=== PATIENT | female | born 1985 | race Caucasian/White ===

== ENCOUNTER 2020-10-13 04:11 | Inpatient (IN) | payer MEDICAID, SELFPAY ==
[2020-10-13] VITALS (20 sets, daily range): BP systolic 98–138; BP diastolic 46–71; PULSE 47–73; RESP 16; TEMP 35.8–36.4; BMI 24.1
[2020-10-13 04:41] LABS: Basophils # 0.1 10^3/uL (0.0-0.1); Basophils % 0.5 %; Eosinophils # 0.2 10^3/uL (0.0-0.8); Eosinophils % 2.1 %; Hematocrit 38.7 % (37.0-47.0); Hemoglobin 12.9 g/dL (11.5-15.3); Lymphocytes # 3.4 10^3/uL (0.8-4.8); Lymphocytes % 31.4 %; Mean Corpuscular HGB Conc 33.3 g/dL (30.0-36.0); Mean Corpuscular Hemoglobin 31.5 pg (28.0-34.0); Mean Corpuscular Volume 94.6 fL (81-99); Monocytes # 0.6 10^3/uL (0.2-0.9); Monocytes % 5.6 %; Neutrophils # 6.42 10^3/uL (1.8-7.7); Neutrophils % 59.7 %; Nucleated Red Blood Cells % 0 %; Platelet Count 208 10^3/cmm (130-400); Red Blood Count 4.09 10^6/uL (4.1-5.3); Red Cell Distribution Width 13.5 % (12.1-15.1); White Blood Count 10.8 10^3/uL (4.0-10.0)
[2020-10-13] MEDS: dextrose 5%-lactated ringers 1,000 ML 125 ML IV (05:01)
[2020-10-13] MEDS: oxytocin 30 UNIT/500 ML BAG 600 UNIT IV (05:01)
[2020-10-13] MEDS: lidocaine 2% INJ 20 mL INJECTION (05:02)
--- NOTE | 2020-10-13 05:29 | P.PCNOB_ITS ---
Delivery Note: Date of delivery: October 13, 2020 Delivery: This is a 35-year-old G4, P3 at 39 weeks 2 days gestation who presented to labor and delivery in active labor with advanced dilation. She was 9 cm dilated at presentation. The patient declined pain management. She underwent artificial rupture of membranes with clear fluid noted. Rupture of membranes was less than 10 minutes prior to delivery. She had a normal spontaneous vaginal delivery of a viable female weight 3520, 7#12 oz Apgars 9/9 over an intact perineum. The was suctioned at delivery and placed on the mother's chest. The cord was clamped and cut. The placenta was delivered grossly intact and normal to inspection. There was some trailing membranes that were removed using ringed forceps. There was a first-degree perineal laceration that was sutured using 3-0 chromic. Estimated blood loss 250 mL. Mother and doing well after delivery. A&P Assessment and plan (1) Normal spontaneous vaginal delivery: Routine care Status: Acute Coding Level of Care Code Acute Counseling Services Director for Silvio Ortiz Diagnoses Normal spontaneous vaginal delivery O80
[2020-10-13 17:15] LABS: Hematocrit 35.6 % (37.0-47.0); Hemoglobin 11.9 g/dL (11.5-15.3); Mean Corpuscular HGB Conc 33.4 g/dL (30.0-36.0); Mean Corpuscular Hemoglobin 31.7 pg (28.0-34.0); Mean Corpuscular Volume 94.9 fL (81-99); Platelet Count 192 10^3/cmm (130-400); Red Blood Count 3.75 10^6/uL (4.1-5.3); Red Cell Distribution Width 13.7 % (12.1-15.1)
[2020-10-14 05:32] VITALS: BP 112/60; PULSE 50; TEMP 36.5
--- NOTE | 2020-10-14 12:29 | PM.DCS ---
Discharge Providers Date of Admission: 10/13/20 04:11 Date of Discharge: October 14, 2020 Attending Provider at Admission: Saba Charles MD Attending Provider at Discharge: Saba Charles MD Primary Care Provider: Saba Charles MD Diagnoses at Discharge Discharge Diagnosis (1) Normal spontaneous vaginal delivery: Status: Acute Reason for Visit Reason for Visit: CONTRACTIONS Hospital Course Hospital Course This is a 35-year-old G4 now P4 who had a normal spontaneous vaginal delivery of a viable female . After delivery mother and infant did well. Mother had average vaginal bleeding, she was ambulating, tolerating a regular diet, and comfortable with discharge home. Physical Exam Const: COMMON NORMALS: alert GENERAL APPEARANCE: cooperative, comfortable and well kempt ORIENTATION/CONSCIOUSNESS: Yes oriented to person HENMT: COMMON NORMALS: normocephalic HEAD & SCALP: normocephalic Eye: COMMON NORMALS: Equal, round and reactive pupils present and EOMs intact bilaterally PUPIL: Yes Equal, round and reactive pupils present GI: COMMON NORMALS: Soft to palpation and non-tender PALPATION: Yes Soft to palpation Extremity: GENERAL: No calf tenderness and No edema Neuro: SENSORIUM/ORIENTATION: Yes alert and Yes oriented to person Psych: COMMON NORMALS: mental status grossly normal APPEARANCE: Yes well kempt Discharge Data Data Completed and Pending: Labs from last 24 hours 10/13/20 17:00 WBC 10.0 RBC 3.75 L Hgb 11.9 Hct 35.6 L MCV 94.9 MCH 31.7 MCHC 33.4 RDW 13.7 Plt Count 192 MPV 13.0 H Vitals: Last Vital Signs Temp 97.7 F 10/14/20 05:32 Pulse 50 L 10/14/20 05:32 Resp 16 10/13/20 23:05 BP 112/60 10/14/20 05:32 Discharge Plan Discharge Patient Disposition: Home Condition: Stable Discharge Orders: Discharge Order (Routine); Ordered 10/14/20 Ordered By: Saba Charles Referrals: Saba Charles MD [Primary Care Provider] - 1 month Discharge Diet: Usual diet Discharge Activity: Limit activity as instructed Patient Instructions: , Vitamins (By mouth), Expression, Collection and Storage of Breastmilk (DC), and Nipple Soreness (DC), and Your Diet (DC), Breast Care for the Breast Feeding Mother (DC), Pre-eclampsia and Eclampsia (DC), Bleeding (DC), OB Discharge Report, OB Food/Drug Interaction Guide, Opioid Safety, OB Proud Parent Packet, OB Vaginal Deliveries, Abnormal Bleeding Discharge Attestations Time Spent in Discharge Care*: less than 30 min Quality Metrics Clinical Quality Measures During this hospital stay, did patient experience: None Coding Level of Care Code Acute Chg FW DC note Diagnoses Normal spontaneous vaginal delivery O80
[2020-10-14 12:55] VITALS: BP 115/57; PULSE 73; TEMP 36.5
[2020-10-14 13:08] VITALS: BP 115/57; PULSE 73; RESP 18; TEMP 36.5
== END 2020-10-14 13:20 | disposition home or self-care (01) | DRG 807 ==
LOC: OPOB 04:14 → OBGYN 04:23
PROVIDERS: Absent Provider Family Medicine; Admitting Provider Family Medicine; PCP Family Medicine; Visit Provider Family Medicine
DX: O70.0 First degree perineal laceration during delivery (principal); Z37.0 Single live birth; Z3A.39 39 weeks gestation of pregnancy; M53.3 Sacrococcygeal disorders, not elsewhere classified; O75.89 Other specified complications of labor and delivery
CPT/HCPCS: 36415; 59409; 85025; 85027; 98960; 99211

== ENCOUNTER 2020-11-16 06:00 | Outpatient (RCR) | payer MEDICAID, SELFPAY | END 2020-11-18 23:59 | disposition home or self-care (01) | LOC: MPT 06:00 | PROVIDERS: PCP Family Medicine; Referring Provider Family Medicine; Visit Provider Family Medicine | DX: M62.89 Other specified disorders of muscle (principal) | CPT/HCPCS: 97110; 97161; 97530 ==

== ENCOUNTER 2020-11-19 06:00 | Outpatient (RCR) | payer MEDICAID, SELFPAY | END 2020-12-19 23:59 | disposition home or self-care (01) | LOC: MPT 06:00 | PROVIDERS: PCP Family Medicine; Referring Provider Family Medicine; Visit Provider Family Medicine | DX: M62.89 Other specified disorders of muscle (principal) | CPT/HCPCS: 97110; 97530 ==

== ENCOUNTER 2024-03-29 09:03 | Outpatient (CLI) | payer MEDICAID, SELFPAY ==
--- NOTE | 2024-03-29 09:08 | USR_ITS ---
PROCEDURE INFORMATION: Exam: US After First Trimester, Transabdominal Exam date and time: 03/29/2024 9:20 AM Age: 38 years old Clinical indication: Screening exam; Routine US, uterus; Additional info: Anatomy check/second trimester normal LABS AND CLINICAL REPORTS: Gestational age (Established): 19 w 1 d Estimated due date (Established): 08/22/2024 TECHNIQUE: Imaging protocol: Real-time transabdominal obstetrical ultrasound of the maternal pelvis and a second or third trimester with image documentation. COMPARISON: US OB >= 14 weeks fetus [id number] 06/03/2020 9:13 AM FINDINGS: Gestation: Single live intrauterine gestation. heart rate: 163 bpm. presentation and position: Breech. Placenta: Unremarkable. No subchorionic bleed. Placenta is posterior. Amniotic fluid (Qualitative): Amniotic fluid is normal for gestational age. ANATOMY: midline falx: Normal cerebellum: Normal lateral ventricles: Normal cisterna magna: Normal choroid plexus: Normal face: Normal heart four-chamber view, heart size and position: Normal heart right ventricular outflow tract: Normal heart left ventricular outflow tract: Normal diaphragm: Normal kidneys: Normal stomach: Normal urinary bladder: Normal spine: Normal Umbilical cord and insertion: Normal. Normal 3 vessel cord upper limbs: Normal lower limbs: Normal external genitalia: Normal BIOMETRY: Gestational age (AUA): EGA Estimated due date (AUA): SARAH Estimated weight: 281.05 g. EFW by AC, BPD, FL, HC, [place] 1985, 51% percentile Biparietal diameter (BPD): 4.41 cm. EGA (BPD) is 19 w 2 d. 59.1 % percentile Head circumference (HC): 16.94 cm. EGA (HC) is 19 w 4 d. 63.5 % percentile Abdominal circumference (AC): 13.87 cm. EGA (AC) is 19 w 2 d. 50.2 % percentile Femur length (FL): 2.95 cm. EGA (FL) is 19 w 1 d. 41 % percentile HC/AC: 1.22. (Normal range: 1.08 - 1.26) FL/HC: 17.41. (Normal range: 16.4 - 18.94) FL/BPD: 66.89 FL/AC: 21.27 MATERNAL: Uterus: Unremarkable. Cervix: Cervical length measures 3.5 cm. Right ovary/adnexa: Obscured by lack of adequate acoustic window. Left ovary/adnexa: Obscured by lack of adequate acoustic window. Intraperitoneal space: No intraperitoneal free fluid. US/US OB >= 14 weeks fetus [id number] IMPRESSION: Single live intrauterine gestation with estimated age of 19 weeks 3 days and weight of 281.05 g.
== END 2024-03-29 09:04 | disposition home or self-care (01) ==
LOC: RAD 09:05
PROVIDERS: PCP Family Medicine; Visit Provider Family Medicine
DX: Z34.82 Encounter for supervision of other normal pregnancy, second trimester (principal)
CPT/HCPCS: 76805

== ENCOUNTER 2024-07-22 06:54 | Outpatient (RCR) | payer MEDICAID, SELFPAY | END 2024-08-19 23:59 | disposition home or self-care (01) | LOC: SPT 06:54 | PROVIDERS: Visit Provider Family Medicine | DX: M54.9 Dorsalgia, unspecified (principal); G89.29 Other chronic pain | CPT/HCPCS: 97110; 97161 ==

== ENCOUNTER 2024-08-24 06:02 | Inpatient (IN) | payer MEDICAID, SELFPAY ==
[2024-08-24] VITALS (15 sets, daily range): BP systolic 103–143; BP diastolic 55–79; PULSE 62–98; RESP 16–18; TEMP 36.2–36.7; O2SAT 95–100; BMI 24.7
[2024-08-24 06:10] LABS: Basophils % 0.2 %; Eosinophils # 0.1 10^3/uL (0.0-0.8); Eosinophils % 0.9 %; Hematocrit 35.7 % (36-47); Lymphocytes # 2.3 10^3/uL (0.8-4.8); Lymphocytes % 26.5 %; Mean Corpuscular HGB Conc 33.1 g/dL (30-55); Mean Corpuscular Hemoglobin 31.7 pg (27-33); Mean Platelet Volume 12.2 fL (7.4-10.4); Monocytes # 0.7 10^3/uL (0.2-0.9); Monocytes % 7.7 %; Neutrophils # 5.49 10^3/uL (1.8-7.7); Neutrophils % 64.2 %; Nucleated Red Blood Cells % 0 %; Platelet Count 189 10^3/cmm (157-399); Red Blood Count 3.72 10^6/uL (3.85-5.65); Red Cell Distribution Width 13.2 % (12.1-15.1); White Blood Count 8.56 10^3/uL (3.29-11.43)
--- NOTE | 2024-08-24 06:59 | PM.OBGYHP ---
Providers/Chief Complaint Admitting Physician: Ruth Ann Bucio DO Chief Complaint: Ctx. 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 Been more irregular yesterday but became more consistent this morning. PMHx includes depression. course overall uncomplicated. Denies LOF, vaginal bleeding. Good movement. care was good and starting in first trimester. Present Details : 5 Para: 4 Labs Blood type OB HPI: O (+) positive Rubella: Immune RPR: Negative GBS: Negative HBsAG: Negative Other Lab Information: Antibody screen negative GC/Chlamydia negative UCx wnl Hep C ab negative HIV negative 1hr GTT failed, passed 3hr GTT Review of Systems Const: Denies: fever(s) or chills Card: Denies: chest pain or dyspnea on exertion Resp: Denies: dyspnea Skin/Breast: Denies: rash Medications/Allergies Home Medications ?Medication ?Instructions ?Recorded ?Confirmed ?Last Taken ?Type No Known Home Medications 08/24/24 08/24/24 Unknown History Allergies Allergy/AdvReac Type Severity Reaction Status Date / Time No Known Allergies Allergy Verified 08/24/24 03:21 History History History 5 Term 5 0 Miscarriages/Ectopic 0 Living Children 5 Vitals/I&O/Wt Last Vital Signs Pulse 98 08/24/24 02:46 Resp 17 08/24/24 06:03 BP 125/75 08/24/24 02:46 O2 Del Method Room Air 08/24/24 06:10 Weight last 48 hrs Weight 158 lb Physical Exam Const: COMMON NORMALS: no acute distress (in pain with contractions) and alert Resp: COMMON NORMALS: normal respiratory effort and clear to auscultation bilaterally Cardio: COMMON NORMALS: no JVD, regular rate, regular rhythm, S1 normal heart sound present, S2 normal heart sound present and No murmurs present (Cardio) Extremity: NARRATIVE EXTREMITY EXAM: No LE edema Psych: COMMON NORMALS: mental status grossly normal Data 08/24/24 05:55 Results Labs OB ([facility]): Blood Type O Positive 08/24/24 Antibody Screen Negative 08/24/24 Hct 35.7 % (36-47) L 08/24/24 Hgb 11.80 g/dL (11.27-16.99) 08/24/24 Rho(D) Type Rh positive 08/24/24 Plt Count 189 10^3/cmm (157-399) 08/24/24 A&P Assessment and plan (1) Spontaneous onset of labor: Plan 39yo at 40w2d presenting for spontaneous labor. Admit for labor. Initial SVE 4/50/-4, vertex and changed to 5/90/-3 over period 2 hours. Routine CBC and blood typing. Intermittent EFM as long as category I. Fentanyl protocol as needed- declines epidural for anesthesia. Anticipate vaginal delivery PDMP PDMP Reviewed: Not Reviewed Attestations Medical Necessity Statement*: Stacey Valera's hospital stay will require greater than 2 midnights for labor and delivery and care. Coding Level of Care Code Acute Code for Chg Fwd Diagnoses Spontaneous onset of labor
[2024-08-24] MEDS: lidocaine 2% INJ 20 mL INJECTION (08:05)
--- NOTE | 2024-08-24 08:25 | PM.DELIVERY ---
Delivery Note: Date of delivery: August 24, 2024 Pre-delivery diagnoses: Term Spontaneous labor Post-delivery diagnoses: Term delivery of viable female Procedure: Spontaneous vaginal delivery Delivering Physician: Ruth Ann Bucio DO Estimated blood loss (mL): 200 Pre-Delivery Course: Admitted on 08/24/2024 with irregular contractions continue to increase in duration and intensity as well as frequency. Initial SVE of 4/50/-3 and progressed to 8/80/-3 at which time SROM with clear fluid occurred at approximately 0723. Following she progressed quickly to complete. Delivery: Patient progressed to complete. Patient in hands and knees position and prefers to deliver in this position. Patient pushed with adequate effort. Head delivered in KEEGAN position, no nuchal cord was present. Shoulders and rest of body delivered without difficulty with no anesthesia. Patient then rotated to lithotomy position and infant placed on maternal abdomen. Mouth and nares bulb suctioned. Cord clamped and cut after approximately 2-minute delay. Placenta spontaneously delivered and noted to be intact. Patient declined Pitocin. Fundus was noted to be firm with massage. The vagina and cervix were inspected and midline second-degree laceration with significant bleeding from midline vessel was noted. And local anesthesia obtained using 1% lidocaine without epinephrine approximately 6 mL. Laceration was repaired with a 3-0 Vicryl suture and noted to be hemostatic. Following with fundal massage numerous clots were expressed and following fundus was again noted to be firm. Female born at 07 57 with 8/9 weighing 8lbs 0oz and measuring 21 in length Placenta noted to be intact with centrally inserted umbilical cord with three-vessel cord. Complications: Maternal none Infant none History History History 5 Term 5 0 Miscarriages/Ectopic 0 Living Children 5 A&P Assessment and plan (1) Normal spontaneous vaginal delivery: PDMP PDMP Reviewed: Not Reviewed Coding Level of Care Code Acute Code for Chg Fwd Diagnoses Normal spontaneous vaginal delivery O80
[2024-08-24 14:13] LABS: Hematocrit 34.2 % (36-47); Mean Corpuscular HGB Conc 33.3 g/dL (30-55); Mean Corpuscular Hemoglobin 31.8 pg (27-33); Mean Corpuscular Volume 95.5 fl (85-98); Mean Platelet Volume 12.2 fL (7.4-10.4); Platelet Count 181 10^3/cmm (157-399); Red Blood Count 3.58 10^6/uL (3.85-5.65); Red Cell Distribution Width 13.2 % (12.1-15.1); White Blood Count 11.98 10^3/uL (3.29-11.43)
--- NOTE | 2024-08-24 18:58 | PC.NURSE ---
Provided sitz bath, ice pack and tuck's pad per patient request. Patient reports some aching but states she does not want medication at this time. Advised that ibuprofen was scheduled for 2100 if desired at that time, otherwise tylenol would be available prn.
--- NOTE | 2024-08-24 20:10 | PC.NURSE ---
Educated patient on patient roundings and plan of care for overnight. patient requests RN not wake her during rounding but is ok with vitals being obtained at 0400.
[2024-08-25 04:00] VITALS: BP 97/58; PULSE 54; RESP 15; TEMP 36.8; O2SAT 97
--- NOTE | 2024-08-25 08:30 | PM.OBGYDC ---
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 Hospital Course Hospital Course Pre-Delivery Course: Admitted on 08/24/2024 with irregular contractions continue to increase in duration and intensity as well as frequency. Initial SVE of 450/-3 and progressed to 8/80/-3 at which time SROM with clear fluid occurred at approximately 0723. Following she progressed quickly to complete. Delivery: Patient progressed to complete. Patient in hands and knees position and prefers to deliver in this position. Patient pushed with adequate effort. Head delivered in KEEGAN position, no nuchal cord was present. Shoulders and rest of body delivered without difficulty with no anesthesia. Patient then rotated to lithotomy position and infant placed on maternal abdomen. Mouth and nares bulb suctioned. Cord clamped and cut after approximately 2-minute delay. Placenta spontaneously delivered and noted to be intact. Patient declined Pitocin. Fundus was noted to be firm with massage. The vagina and cervix were inspected and midline second-degree laceration with significant bleeding from midline vessel was noted. And local anesthesia obtained using 1% lidocaine without epinephrine approximately 6 mL. Laceration was repaired with a 3-0 Vicryl suture and noted to be hemostatic. Following with fundal massage numerous clots were expressed and following fundus was again noted to be firm. Female born at 07 57 with 8/9 weighing 8lbs 0oz and measuring 21 in length Placenta noted to be intact with centrally inserted umbilical cord with three-vessel cord. Complications: Maternal none none course: Patient underwent on 08/24/24. course was unremarkable. Following delivery patient ambulated well, tolerated a normal diet without nausea or vomiting. Pain was well-controlled on PO medications, breast-feeding well, no leg/calf pain, no calf/leg swelling, normal urination, passing gas. Vaginal bleeding thin lochia and decreasing. labs with hemoglobin of 11.4. Follow-up planned for 2 and 6 weeks . Warning signs for endometritis, pre-eclampsia, DVT/PE, mastitis were reviewed, discussed additional warning signs including increased vaginal bleeding, worsening abdominal pain. Pelvic rest and activity precautions reviewed as well. She is discharged on 08/25/2024 in stable condition. Information Peripartum Data: Delivery Method: Vaginal Physical Exam Const: COMMON NORMALS: no acute distress (in pain with contractions) and alert Neck/C-Spine: COMMON NORMALS: no JVD Resp: COMMON NORMALS: normal respiratory effort and clear to auscultation bilaterally AUSCULTATION: clear to auscultation bilaterally Cardio: COMMON NORMALS: no JVD, regular rate, regular rhythm, S1 normal heart sound present, S2 normal heart sound present and No murmurs present (Cardio) RATE: regular rate RHYTHM: regular rhythm HEART SOUNDS: S1 normal heart sound present and S2 normal heart sound present : OTHER: Uterine fundus firm and below the umbilicus Extremity: NARRATIVE EXTREMITY EXAM: No LE edema Neuro: SENSORIUM/ORIENTATION: Yes alert Psych: COMMON NORMALS: mental status grossly normal History History History 5 Term 5 0 Miscarriages/Ectopic 0 Living Children 5 Discharge Data Studies Completed and Pending Laboratory Results WBC 11.98 10^3/uL (3.29-11.43) H 08/24/24 14:00 RBC 3.58 10^6/uL (3.85-5.65) L 08/24/24 14:00 Hgb 11.40 g/dL (11.27-16.99) 08/24/24 14:00 Hct 34.2 % (36-47) L 08/24/24 14:00 MCV 95.5 fl (85-98) 08/24/24 14:00 MCH 31.8 pg (27-33) 08/24/24 14:00 MCHC 33.3 g/dL (30-55) 08/24/24 14:00 RDW 13.2 % (12.1-15.1) 08/24/24 14:00 Plt Count 181 10^3/cmm (157-399) 08/24/24 14:00 MPV 12.2 fL (7.4-10.4) H 08/24/24 14:00 Neut % (Auto) 64.2 % 08/24/24 05:55 Lymph % (Auto) 26.5 % 08/24/24 05:55 [place] % (Auto) 7.7 % 08/24/24 05:55 Eos % (Auto) 0.9 % 08/24/24 05:55 Baso % (Auto) 0.2 % 08/24/24 05:55 Neut # (Auto) 5.49 10^3/uL (1.8-7.7) 08/24/24 05:55 Lymph # (Auto) 2.3 10^3/uL (0.8-4.8) 08/24/24 05:55 [place] # (Auto) 0.7 10^3/uL (0.2-0.9) 08/24/24 05:55 Eos # (Auto) 0.1 10^3/uL (0.0-0.8) 08/24/24 05:55 Baso # (Auto) 0.0 10^3/uL (0.0-0.1) 08/24/24 05:55 Nucleated RBC % (auto) 0 % 08/24/24 05:55 Nucleated RBCs # 0.0 /100WBC 08/24/24 05:55 Blood Type O Positive 08/24/24 05:55 Rho(D) Type Rh positive 08/24/24 05:55 Antibody Screen Negative 08/24/24 05:55 Vitals Last Vital Signs Temp 98.3 F 08/25/24 04:00 Pulse 54 L 08/25/24 04:00 Resp 15 08/25/24 04:00 BP 97/58 08/25/24 04:00 Pulse Ox 97 08/25/24 04:00 O2 Del Method Room Air 08/25/24 04:00 Results Labs OB ([facility]): Blood Type O Positive 08/24/24 Antibody Screen Negative 08/24/24 Hct 34.2 % (36-47) L 08/24/24 Hgb 11.40 g/dL (11.27-16.99) 08/24/24 Rho(D) Type Rh positive 08/24/24 Plt Count 181 10^3/cmm (157-399) 08/24/24 Discharge Plan Discharge Patient Disposition: Home Condition: Stable Prescriptions: New docusate sodium 100 mg Capsule 100 mg PO BID Qty: 60 0RF ibuprofen 800 mg Tablet 800 mg PO TID Qty: 90 0RF No Action No Known Home Medications Discharge Orders: Discharge Order (Routine); Ordered 08/25/24 Ordered By: Ruth Ann Bucio Discharge Diet: Usual diet Discharge Activity: Increase activity as tolerated Patient Instructions: Depression (DC), Bleeding (DC), Preeclampsia and Eclampsia After Delivery (GEN), Vaginal Delivery (DC), Hemorrhage (DC), OB Discharge Report, OB Food/Drug Interaction Guide, Opioid Safety, OB Home Care, OB Proud Parent Packet Activity Restrictions/Additional Instructions: Pelvic rest for 6 weeks. Follow-up at 2 and 6 weeks . Discharge Attestations SUBSTATION DESIGN DRAFTSPERSON Time Spent in Discharge Care*: less than 30 min Coding Level of Care Code Acute Code for Chg Fwd Diagnoses Spontaneous onset of labor
[2024-08-25 11:00] VITALS: BP 99/62; PULSE 66; RESP 16; TEMP 36.7; O2SAT 98
== END 2024-08-25 11:00 | disposition home or self-care (01) | DRG 807 ==
LOC: OPOB 06:02 → OBGYN 06:02
PROVIDERS: Admitting Provider Family Medicine; Visit Provider Family Medicine
DX: O48.0 Post-term pregnancy (principal); Z37.0 Single live birth; Z3A.40 40 weeks gestation of pregnancy; Z86.59 Personal history of other mental and behavioral disorders; O70.9 Perineal laceration during delivery, unspecified
CPT/HCPCS: 36415; 59025; 59409; 85025; 85027; 86850; 86900; 99211; J9999